=== PATIENT | male | born 1970 | race Two or more races ===

== ENCOUNTER 2024-10-05 10:35 | Day surgery (SDC) | payer MEDICAID, SELFPAY ==
[2024-10-04 10:00] VITALS: BMI 30.4
[2024-10-04 10:31] LABS: Collection Type, Urine Clean Catch
[2024-10-04 11:15] LABS: Basophils # (Auto) 0.1 Thou/mm3 (0.0-0.2); Basophils % (Auto) 1 % (0-2.5); Eosinophils # (Auto) 0.2 Thou/mm3 (0.0-0.5); Eosinophils % (Auto) 3 % (0-10); Hematocrit 45.7 % (41.0-53.0); Hemoglobin 15.9 g/dL (13.5-16.0); Immature Granulocytes % (Auto) 0 % (0-0); Immature Granulocytes Auto 0.01 Thou/mm3 (0.00-0.00); Lymphocytes # (Auto) 2.1 Thou/mm3 (1.0-4.8); Lymphocytes % (Auto) 34 % (10-50); Mean Corpuscular HGB Conc 34.8 g/dl (31.0-37.0); Mean Corpuscular Hemoglobin 30.3 pg (25.0-35.0); Mean Corpuscular Volume 87 fL (80-100); Monocytes # (Auto) 0.6 Thou/mm3 (0.0-0.8); Monocytes % (Auto) 9 % (0-12); Neutrophils # (Auto) 3.3 Thou/mm3 (1.8-7.7); Neutrophils % (Auto) 53 % (37-80); Nucleated Red Blood Cell % 0 /100 WBC (0); Platelet Count 258 Thou/mm3 (140-440); Red Blood Count 5.24 Miln/mm3 (4.50-5.90); White Blood Count 6.1 Thou/mm3 (3.8-10.6)
[2024-10-04 11:17] LABS: Bilirubin,Urine Negative (Negative); Blood,Urine Negative (Negative); Clarity,Urine Clear (Clear/Hazy); Color,Urine Lt-Yellow (Lt Yel-Yel); Glucose, Urine Negative (Negative); Ketones,Urine Negative (Negative); Leukocyte Esterase,Urine Negative (Negative); Nitrite,Urine Negative (Negative); Protein,Urine Negative (Neg - Trace); RBC,Urine 2 /hpf (0-3); Specific Gravity,Urine 1.015 (1.001-1.035); Squamous Epithelial Cell,Urine < 1 /hpf (0-5); Urobilinogen,Urine Negative mg/dL (0.0-1.0); WBC,Urine 1 /hpf (0-5)
[2024-10-04 11:21] LABS: Anion Gap 8 (7-16); BUN/Creatinine Ratio 13 Ratio (12-20); Blood Urea Nitrogen 12 mg/dL (9-23); Calcium 9.4 mg/dL (8.3-10.6); Carbon Dioxide 27.4 mMol/L (20.0-31.0); Chloride 106 mMol/L (98-107); Creatinine (Component) 0.9 mg/dL (0.6-1.3); Estimated Creatinine Clearance 106.2 mL/min (>60); Glucose 80 mg/dL (74-106); Osmolality,Calculated 279 (275-295); Potassium 4.3 mMol/L (3.4-5.1); Sodium 141 mMol/L (136-145); eGFR > 60 See Note
[2024-10-05] VITALS (7 sets, daily range): BP systolic 91–131; BP diastolic 79–97; PULSE 53–73; RESP 14–20; TEMP 36.3–36.8; O2SAT 97–100; BMI 30.3
--- NOTE | 2024-10-05 09:41 | ESHP_ITS ---
RE: ROSE HENRIQUEZ : 1970 DATE OF ADMISSION: 10/05/2024 HISTORY OF PRESENT ILLNESS: The patient is a 53-year-old gentleman with history of elevated PSA of 10.1. He has prostatism and prostatic obstruction. The patient has a family history of prostate cancer. He has nocturia two times with fair stream, previous surgery, appendectomy, and operation on his face. He has five kids. ALLERGIES: NONE KNOWN. PAST MEDICAL HISTORY: No history of diabetes mellitus. No history of hypertension. MEDICATIONS: He takes 1. Doxazosin. 2. Tamsulosin. 3. Finasteride for his prostatic obstruction and prostatism. PHYSICAL EXAMINATION: HEENT: Normal. NECK: Supple. LUNGS: Clear. CARDIOVASCULAR: Heart sounds are normal. ABDOMEN: Soft without any organomegaly. No guarding. No rigidity. EXTREMITIES: Normal. GENITOURINARY: Phallus is normal. Testicle down in scrotum. RECTAL: Revealed moderately enlarged smooth prostate without any hard nodules. IMPRESSION: 1. Prostatism 2. Prostatic obstruction 3. Elevated PSA of 10.1 PLAN: Cystoscopy and transrectal prostatic ultrasound with ultrasound-guided prostatic needle biopsy. Plan procedure, risks, and complications have been discussed with the patient. The patient has understood them and agreed to proceed. DT: 16:00:31 TT: 17:23:00 Ref: [id number] - TID: [id number]
[2024-10-05] MEDS: RINGERS LACTATED 1000 ML 1,000 ML 20 ML IV (11:34)
--- NOTE | 2024-10-05 12:30 | XR_ITS ---
Examination: Transrectal prostate sonography Exam date and time: October 05, 2024 1224 hours INDICATIONS: Ultrasound localization for prostatic biopsies TECHNIQUE AND FINDINGS: Multiple prostate sonographic images obtained for biopsies performed by Dr Bales IMPRESSION: Sonographic imaging obtained for physician biopsy of prostate
--- NOTE | 2024-10-05 13:58 | SUR.PHASEII ---
patient ate jello and apple sauce; drinking juice, tolerating
--- NOTE | 2024-10-05 14:26 | SUR.PHASEII ---
1426 Patient meets discharge criteria from recovery, awake and alert, breathing unlabored, vital signs stable, denies pain, patient ate a jello and apple sauce and drinking cranberry juice; denies nausea, patient able to dress himself into his clothing, discharge instructions given to patient and patients , signed discharge instructions. Patient given all his belongings prior to discharge, transported via wheelchair and left in a private vehicle.
--- NOTE | 2024-10-05 18:14 | ESOP_ITS ---
RE: ROSE HENRIQUEZ : 1970 DATE OF OPERATION: 10/05/2024 PREOPERATIVE DIAGNOSES: Prostatism, prostatic obstruction, elevated PSA of 10.1, and family history of prostate cancer. POSTOPERATIVE DIAGNOSES: Prostatism, prostatic obstruction, elevated PSA of 10.1, and family history of prostate cancer. PROCEDURES PERFORMED: Cystoscopy, urethral dilatation, and transrectal prostatic ultrasound with ultrasound-guided prostatic needle biopsy. ANESTHESIA: Monitored anesthesia. INDICATION: The patient is a 53-year-old male with elevated PSA of 10.1. He has nocturia x2. He is taking doxazosin, tamsulosin, and finasteride from his primary care doctor. On examination, he has a moderate-sized prostate without any hard nodules. He was now scheduled to have cystoscopy, transrectal prostatic ultrasound, and ultrasound-guided prostatic needle biopsy. Planned procedure, risks, and complications have been discussed with the patient. The patient understood them and agreed to proceed. DESCRIPTION OF PROCEDURE: After the patient was brought to the operating table under adequate monitored anesthesia and dorsal lithotomy position, parts were prepped and draped in the usual fashion. Cystoscopy was then carried out, which revealed adequate urethral meatus, normal-appearing urethra, and mildly enlarged prostate. Scope was introduced into the bladder. Residual urine was yellow and clear. There are no intravesical stones or tumors. Ureteral orifices were found to be normal in position and appearance. Scope was withdrawn. Urethra was dilated. The patient was then turned in left lateral position. Transrectal prostatic ultrasound was carried out. Biopsies were obtained from both lobes. Using ultrasound guidance, prostatic volume was measured at 21.2 cubic cm. The patient tolerated the entire procedure well and left the room in good condition. DT: 13:45:19 TT: 18:12:00 Ref: [id number] - TID: [id number]
== END 2024-10-05 14:26 | disposition home or self-care (01) ==
PROVIDERS: PCP Family Medicine; Referring Provider Surgery; Visit Provider Surgery
PROC: (CPT 55700; principal; 2024-10-05 13:15)
PROC: 0TJB8ZZ Inspection of Bladder, Via Natural or Artificial Opening Endoscopic (ICD-10-PCS; CPT 52000; 2024-10-05 13:15)
DX: N40.1 Benign prostatic hyperplasia with lower urinary tract symptoms (principal); R97.20 Elevated prostate specific antigen [PSA]; Z80.42 Family history of malignant neoplasm of prostate
CPT/HCPCS: 52281; 55700; 36415; 76942; 80048; 81001; 85025; 87086; A4217; A4649; J0694; J2250; J2704; J3010; J3490; J7120

== ENCOUNTER → 2024-10-26 | Outpatient (CLI) | payer MEDICAID, SELFPAY ==
--- NOTE | 2024-10-26 16:00 | XR_ITS ---
Examination: CT abdomen and pelvis without contrast. Coronal 3-D reconstructions. Sagittal 2-D reconstructions. Date and time of exam: 2024, 4:32 PM Indications: Diagnosis malignant neoplasm of the prostate 3 weeks ago, elevated PSA, staging CTDI: vol (mGy): 7.58 DLP: (mGycm): 459 Technique: Axial images of the abdomen have been obtained, 3 mm slice thickness Intravenous contrast material has not been administered. Low dose protocols were performed. One or more of the following dose reduction techniques were used; automated exposure control, adjustment of the mA and/or KV according to patient size, use of iterative reconstruction technique. Findings: 28 mm 14 mm left lobe liver lesions Spleen is not enlarged No gallstones No pancreatic or adrenal mass No renal or ureteral calculi, no hydronephrosis Aorta normal size No pathologic abdominal or pelvic lymphadenopathy Absent appendix Normal seminal vesicles Transverse prostate dimension 4.1 cm Thickening of urinary bladder wall up to 6 mm No bladder calculi Advanced degenerative disc disease L5-S1 12 mm sclerotic focus posterior left iliac bone image 209 Impression: Left lobe liver lesions as above, recommend MRI abdomen liver follow-up pre and postcontrast No abdominal or pelvic lymphadenopathy 12 mm sclerotic focus posterior left iliac bone, considerable body bone scan follow-up
== END | disposition home or self-care (01) ==
PROVIDERS: Referring Provider Surgery; Visit Provider Surgery
DX: K76.9 Liver disease, unspecified (principal); M89.8X8 Other specified disorders of bone, other site; C61 Malignant neoplasm of prostate
CPT/HCPCS: 74176

== ENCOUNTER → 2024-11-02 | Outpatient (CLI) | payer MEDICAID, SELFPAY ==
--- NOTE | 2024-11-02 | XR_ITS ---
Examination: Bone scan whole body, radioisotope Date and time of exam: November 02, 2024 1150 hours INDICATIONS: Diagnosis malignant neoplasm prostate, this month, staging Technique: Study has been performed with intravenous administration of 24.1 mci 99M technetium MDP. Anterior, posterior whole body images are obtained. Images have been obtained including the lower extremities. Findings: Mild increased isotopic examination right pedicle L4 IMPRESSION: Positive bone scan although nonspecific Mild increased isotope accumulation right pedicle L4 Recommend MRI lumbar spine follow-up pre and postcontrast
== END | disposition home or self-care (01) ==
PROVIDERS: PCP Family Medicine; Referring Provider Surgery; Visit Provider Surgery
DX: R93.7 Abnormal findings on diagnostic imaging of other parts of musculoskeletal system (principal); C61 Malignant neoplasm of prostate
CPT/HCPCS: 78306; A9503